=== PATIENT | male | born 1950 | race Two or more races ===

== ENCOUNTER → 2018-04-29 | Outpatient (CLI) | payer MEDICARE | END | disposition home or self-care (01) | LOC: KCIC 11:48 | DX: L02.611 Cutaneous abscess of right foot (principal); M19.071 Primary osteoarthritis, right ankle and foot; M79.89 Other specified soft tissue disorders | CPT/HCPCS: 73620 ==

== ENCOUNTER → 2019-09-15 | Outpatient (CLI) | payer MEDICARE ==
--- NOTE | 2019-09-15 15:20 | PCVCIMAG ---
EXAM: BILATERAL LOWER EXTREMITY ARTERIAL DUPLEX INDICATION: Peripheral Arterial Disease. Leg pain. FINDINGS: Right Leg: Satisfactory arterial waveforms throughout the common/profunda/superficial femoral, popliteal, anterior tibial, peroneal, and posterior tibial arteries. No flow limiting stenosis seen. Left Leg: Common femoral profunda femoral arteries are patent. Superficial femoral and popliteal artery are patent. Occlusion throughout the anterior tibial artery. 70% stenosis tibioperoneal trunk and 60% stenosis proximal posterior tibial artery. Peroneal artery is patent. IMPRESSION: No flow limiting stenosis in the right lower extremity. 70% stenosis left tibioperoneal trunk. 60% stenosis proximal left posterior tibial artery. Occlusion throughout the left anterior tibial artery. LOC:[id number]
== END | disposition home or self-care (01) ==
LOC: PCVCIMAG 11:20
PROVIDERS: ATTEND Nurse Practitioner
DX: I70.202 Unspecified atherosclerosis of native arteries of extremities, left leg (principal); E11.9 Type 2 diabetes mellitus without complications; I10 Essential (primary) hypertension; G20 Parkinson's disease
CPT/HCPCS: 93925